=== PATIENT | female | born 1960 | race Caucasian/White ===

== ENCOUNTER 2016-08-10 11:05 | Outpatient (CLI) | payer OTHER ==
[2014-04-28 12:07] VITALS: BP 139/80
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
== END 2016-08-10 11:06 ==
LOC: RAD 11:05
PROVIDERS: ATTEND Family Medicine
DX: M48.54XA Collapsed vertebra, not elsewhere classified, thoracic region, initial encounter for fracture (principal); M48.02 Spinal stenosis, cervical region
CPT/HCPCS: 72141; 72146

== ENCOUNTER 2016-08-11 10:54 | Outpatient (CLI) | payer OTHER ==
[2014-04-28 12:07] VITALS: BP 139/80
[~2016-08-11 10:54] MED LIST: BUPIVACAINE HCL/PF 2.5 MG/ML 10ML VIAL IV ONE; Lidocaine 1% 5ml(IM or SUTURE)(PAIN CLINIC) ONE; MIDAZOLAM HCL 2 MG/2 ML VIAL ONE; NORMAL SALINE 500 ML IV.SOLN IV ONE; SALINE FLUSH 10 ML DISP.SYRIN IVF ONE; TRIAMCINOLONE ACETONID 40MG/ML VIAL ONE; fentaNYL CITRATE/PF 100 MCG/ 2ML AMP ONE
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
--- NOTE | 2016-08-13 12:41 | THORACIC ESI FLUORO ---
NAME OF PROCEDURE: Left T4-T5 thoracic epidural steroid injection with trigger point injection under fluoroscopic guidance. DESCRIPTION OF PROCEDURE: The risks and benefits were discussed with the patient including the risk of infection, bleeding, nerve injury, and headache, as well as the risks of steroid exposure causing hyperglycemia, hypertension, osteoporosis, or increased infectious risks. The patient understood these risks and agreed to proceed. Consent was obtained prior to the procedure. The patient was placed in the prone position on the fluoroscopy table with a pillow underneath the abdomen to afford anterior flexion of the thoracic spine. The low back was cleaned. A sterile drape was applied. An 18 gauge thin wall Tuohy epidural needle was advanced with normal saline loss of resistance technique and direct fluoroscopic guidance with a left paramedian approach at the T4-T5 level. On obtaining loss of resistance to normal saline, it was verified that there was no aspiration of CSF or blood. Furthermore, the needle tip location was verified with lateral and AP fluoroscopic views. Omnipaque 240 myelogram dye were injected through the epidural needle. The distribution of the dye was noted to be within the desired distribution within the lumbar epidural space. Triamcinolone acetate and 1% lidocaine was injected into the epidural space. The stylet was replaced in the needle and the needle was removed from the back. At this point, a trigger point injection with 0.25% bupivacaine was placed in the left rhomboid muscle and the latissimus dorsi muscle. The patient tolerated the procedure well. There were no apparent complications. The back was cleaned and a bandage was applied over the injection site. The patient was monitored for 20 minutes following the procedure. During this time, the vital signs remained stable and the patient experienced no adverse sequelae. The patient was discharged in good condition. ASSESSMENT: 1. Left thoracic radiculitis and T4-T5 neuroforaminal stenosis. 2. Chronic compression deformities of T3, T4, and T5 vertebral bodies. 3. Severe thoracic kyphosis. 4. Lumbar multi-level spondylosis without spinal or neuroforaminal narrowing. PLAN: Left T4-T5 thoracic epidural steroid injection with trigger point injection under fluoroscopic guidance. FOLLOWUP: Return to clinic if problems develop or worsen. KELSIE
== END 2016-08-11 11:00 ==
LOC: OUT 10:54
PROVIDERS: ATTEND Anesthesiology Pain Medicine
DX: M48.04 Spinal stenosis, thoracic region (principal); M54.14 Radiculopathy, thoracic region; M40.204 Unspecified kyphosis, thoracic region; M47.816 Spondylosis without myelopathy or radiculopathy, lumbar region
CPT/HCPCS: 99214; G0463; J2250; J3010; J3301; J3490; J7060; Q9966; S1016

== ENCOUNTER 2016-08-17 09:35 | Outpatient (CLI) | payer OTHER ==
[2014-04-28 12:07] VITALS: BP 139/80
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
== END 2016-08-17 09:36 ==
LOC: RAD 09:35
PROVIDERS: ATTEND Family Medicine
DX: M54.9 Dorsalgia, unspecified (principal)
CPT/HCPCS: 72148

== ENCOUNTER 2016-09-15 11:29 | Outpatient (CLI) | payer OTHER, MEDICAID ==
[2014-04-28 12:07] VITALS: BP 139/80
[~2016-09-15 11:29] MED LIST changes: +0.9 % SODIUM CHLORIDE PF 10 ML VIAL IJ ONE; -BUPIVACAINE HCL/PF 2.5 MG/ML 10ML VIAL IV ONE; +LIDOCAINE HCL/PF 2% 100 MG/5 ML VIAL IJ ONE; -MIDAZOLAM HCL 2 MG/2 ML VIAL ONE; +PROPOFOL 200 MG/20 ML VIAL IV ONE; -fentaNYL CITRATE/PF 100 MCG/ 2ML AMP ONE
--- NOTE | 2016-09-16 10:38 | THORACIC ESI FLUORO ---
SUBJECTIVE: Ms. Zarate follows up today with thoracic radiculitis. She had a T4-T5 epidural steroid injection (CYRIL) which was very effective. She said she had 100 % pain relief which lasted several weeks. The pain has been gradually reoccurring, but she is still improved. ANESTHESIA: Monitored anesthesia care. ANESTHESIOLOGIST: Gabriella Chavez CRNA OPERATIVE PROCEDURE: Left thoracic T4-T5 epidural steroid injection with fluoroscopic guidance. DESCRIPTION OF PROCEDURE: The risks and benefits were discussed with the patient including the risk of infection, bleeding, nerve injury, and headache, as well as the risks of steroid exposure causing hyperglycemia, hypertension, osteoporosis, or increased infectious risks. The patient understood these risks and agreed to proceed. Consent was obtained prior to the procedure. The patient was placed in the prone position on the fluoroscopy table with a pillow underneath the abdomen to afford anterior flexion of the thoracic spine. The low back was cleaned and a sterile drape was applied. An 18-gauge thin wall Tuohy epidural needle was advanced with normal saline loss of resistance technique and direct fluoroscopic guidance with a left paramedian approach at the T4-T5 level. On obtaining loss of resistance to normal saline, it was verified that there was no aspiration of CSF or blood. Furthermore, the needle tip location was verified with lateral and AP fluoroscopic views. Omnipaque 240 myelogram dye were injected through the epidural needle. The distribution of the dye was noted to be within the desired distribution within the thoracic epidural space. Triamcinolone acetate and 1% lidocaine was injected into the epidural space. The stylet was replaced in the needle and the needle was removed from the back. The patient tolerated the procedure well. The back was cleaned and a bandage was applied over the injection site. The patient was monitored for 20 minutes following the procedure and during this time the vital signs remained stable and the patient experienced no adverse sequelae. The patient was discharged in good condition. ASSESSMENT: 1. Thoracic radiculitis. 2. Kyphosis of the thoracic spine. 3. Left neuroforaminal stenosis. PLAN: I am going to plan on repeating the T4-T5 thoracic epidural steroid injection today with anesthesia sedation because of the discomfort she had during the previous injection. I looked at lumbar MRI images and she has primary spondylolytic changes at the lower portion of the lumbar spine without evidence of disk protrusion or spinal stenosis. Plan today for a left thoracic T4-T5 epidural steroid injection under fluoroscopic guidance with monitored anesthesia care. FOLLOW UP: Furthermore, I am going to plan on having her follow up in 4 to 6 weeks for a reevaluation at that point. KELSIE
== END 2016-09-15 11:30 ==
LOC: OUT 11:29
PROVIDERS: ATTEND Anesthesiology Pain Medicine
DX: M54.14 Radiculopathy, thoracic region (principal); M40.294 Other kyphosis, thoracic region; M48.04 Spinal stenosis, thoracic region
CPT/HCPCS: J2001; J2704; J3301; J7060; Q9966; 99214; G0463; S1016

== ENCOUNTER 2016-11-24 10:12 | Outpatient (CLI) | payer OTHER, MEDICAID ==
[2014-04-28 12:07] VITALS: BP 139/80
--- NOTE | 2016-11-26 09:53 | THORACIC TF NERVE ROOT BLOCK ---
SUBJECTIVE: Kymberly follows up with me today and I reviewed her MRIs with her and she has a great deal of increased cervical lordosis and thoracic kyphosis. She is having mostly left-sided flank pain at T4-T5 and T5-T6 from radiculitis secondary to kyphosis and disk protrusion. She has improved, and I am going to repeat a transforaminal injection at T4-T5 on the left. PROCEDURE: Left T4-T5 thoracic transforaminal epidural steroid injection with fluoroscopic guidance. DESCRIPTION OF PROCEDURE: The risks and benefits of todays procedure were discussed with the patient at length including the risks of infection, bleeding, nerve injury and potential pneumothorax. The patient understood these risks and agreed to proceed. The patient was placed in the prone position on the fluoroscopy table with a pillow underneath the chest to a forward flexion of the spine. The back was cleaned and sterile drapes were applied. An oblique fluoroscopic view was obtained of the T4-T5 level. A 23-gauge, 3-1/ 2 inch spinal needle was advanced under direct beam fluoroscopic guidance until the needle tip contacted the superior most aspect of the left-sided T4 rib articulation (just proximal to the articulation of the rib). The needle was then directed slightly superomedially under lateral fluoroscopic viewing and advanced into the T4 nerve root foramen (T4-T5 intervertebral foramen). It was verified that there was no aspiration of cerebrospinal fluid or blood. Omnipaque 240 myelogram dye was injected through the needle and was noted to course within the desired distribution along the foraminal epidural space and out the nerve root epidural region. Triamcinolone acetate diluted in 0.25% bupivacaine was subsequently injected into the epidural space. The stylette was replaced in the needle and the needle was removed from the back. The patient tolerated the procedure well. A bandage was applied over the injection site. The patient was monitored for 20 minutes following the procedure during which time the vital signs remained stable and the patient experienced no adverse sequelae. The patient was discharged home in good condition. ASSESSMENT: 1 Thoracic radiculitis. 2. Cervical stenosis at C4-C5, C5-C6, and C6-C7. FOLLOW UP: Return to the clinic if problems develop or worsened. cc: Dr. Celestino IGLESIAS
== END 2016-11-24 10:13 ==
LOC: OUT 10:12
PROVIDERS: ATTEND Anesthesiology Pain Medicine
DX: M54.14 Radiculopathy, thoracic region (principal); M48.02 Spinal stenosis, cervical region
CPT/HCPCS: J2250; J2704; J3301; J3490; Q9966; 64490; 99214; G0463

== ENCOUNTER → 2017-05-11 | Outpatient (CLI) | payer OTHER ==
[2014-04-28 12:07] VITALS: BP 139/80
[2017-05-11 10:45] LABS: eGFR (African) > 60; eGFR (Non-African) > 60
--- NOTE | 2017-05-11 12:56 | Diagnostic Imaging Report ---
NATHALY COCHRAN [facility] [address] [facility] [address] [place] [address]. [id number] Report Submission Date: May 11, 2017 11:39:42 AM CDT Patient Study Name: CAROLINA SANON Date: May 11, 2017 10:54:00 AM CDT Modality Type: CT\SR Gender: F Description: CT ABD & PELVIS W/ CON : 56 Institution: [facility] Physician: NATHALY COCHRAN Examination: CT Abdomen/pelvis History: Generalized abdominal discomfort Comparison exams: None available Technique: CT Abdomen/pelvis with IV protocol. Findings: Liver demonstrates diffuse low attenuation. No central lesion. Spleen , adrenals, pancreas, kidneys and gallbladder are without gross irregularity. No abnormal enhancement. No gallstone. No suspicious calcifications, the renal parenchyma. Ureters do not appear to be dilated in their course through the abdomen and pelvis. Bladder margin within normal limits. Abdominal aorta demonstrates mild peripheral described disease. No aneurysm. Cardiac silhouette not enlarged. No pericardial effusion. Bowel with contrast. Few prominent loops of small bowel with air-fluid levels within the left upper abdomen. No abnormal small bowel dilation. Stool within the large bowel limiting sensitivity. Diffuse mucosal thickening involving the large bowel extending from the cecum through to the rectum. No mesenteric inflammatory changes or free fluid. Appendix not visualized. Osseous structures demonstrate degenerative changes. Lung bases without infiltrate. No effusion. Impression: Diffuse mucosal thickening involving the entire large bowel - vieira colitis. No evidence for perforation or abscess at this time. Few prominent loops of small bowel with air-fluid levels within the left upper abdomen - enteritis. Fatty liver. Electronically signed on May 11, 2017 11:39:42 AM CDT by: Juan Manuel IGLESIAS
== END ==
LOC: RAD 08:46
PROVIDERS: ATTEND Family Medicine
DX: K52.9 Noninfective gastroenteritis and colitis, unspecified (principal); R14.0 Abdominal distension (gaseous); R10.13 Epigastric pain
CPT/HCPCS: 74177; 82565; Q9966; A9698

== ENCOUNTER 2017-06-09 09:28 | Outpatient (CLI) | payer OTHER ==
[2014-04-28 12:07] VITALS: BP 139/80
[~2017-06-09 09:28] MED LIST changes: -0.9 % SODIUM CHLORIDE PF 10 ML VIAL IJ ONE; +BUPIVACAINE HCL/PF 2.5 MG/ML 10ML VIAL IV ONE; -LIDOCAINE HCL/PF 2% 100 MG/5 ML VIAL IJ ONE; +MIDAZOLAM HCL 2 MG/2 ML VIAL ONE; -PROPOFOL 200 MG/20 ML VIAL IV ONE; +fentaNYL CITRATE/PF 100 MCG/ 2ML AMP ONE
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
== END 2017-06-09 09:30 ==
LOC: OUT 09:28
PROVIDERS: ATTEND Anesthesiology Pain Medicine
DX: M54.14 Radiculopathy, thoracic region (principal); M40.294 Other kyphosis, thoracic region; M48.54XA Collapsed vertebra, not elsewhere classified, thoracic region, initial encounter for fracture
CPT/HCPCS: 64479; 99214; G0463; J2250; J3010; J3301; J7060; J3490; Q9966; S1016

== ENCOUNTER 2018-01-19 11:02 | Outpatient (CLI) | payer OTHER ==
[2014-04-28 12:07] VITALS: BP 139/80
[~2018-01-19 11:02] MED LIST changes: -BUPIVACAINE HCL/PF 2.5 MG/ML 10ML VIAL IV ONE; -Lidocaine 1% 5ml(IM or SUTURE)(PAIN CLINIC) ONE; -NORMAL SALINE 500 ML IV.SOLN IV ONE; -SALINE FLUSH 10 ML DISP.SYRIN IVF ONE; -TRIAMCINOLONE ACETONID 40MG/ML VIAL ONE
[2018-01-19] MEDS ORDERED: 0.9 % SODIUM CHLORIDE 500 ML IV ONE (11:03)
[2018-01-19] MEDS ORDERED: TRIAMCINOLONE ACETONID 40MG/ML VIAL ONE (11:03)
[2018-01-19] MEDS ORDERED: WATER FOR INJECTION,STERILE 100 ML VIAL IJ ONE (11:03)
[2018-01-19] MEDS ORDERED: Lidocaine 1% 5ml(IM or SUTURE)(PAIN CLINIC) ONE (11:03)
--- NOTE | 2018-01-25 11:33 | THORACIC TF NERVE ROOT BLOCK ---
SUBJECTIVE: Ms. Zarate follows up today with return of left-sided chest wall pain. She had a very good response to a left T4 transforaminal injection in May and had relatively complete relief of her chest wall pain following the transforaminal injection. She said that the pain did not reoccur until the latter part of December of 2017 and she presents today with left T4 radiculitis for a left thoracic T4 transforaminal nerve root injection with fluoroscopic guidance. We have elected to use IV sedation. ANESTHESIA: IV sedation with 2 mg of Versed IV and 50 mcg of Fentanyl. PROCEDURE: Left thoracic T4 transforaminal nerve root injection with fluoroscopic guidance. DESCRIPTION OF PROCEDURE: Consent was obtained after risks were fully explained. Then 2 mg of Versed IV and 50 mcg of Fentanyl was administered. With the patient positioned prone on the fluoroscopic procedure table, sterile prep and drape were applied. Under AP, oblique, and lateral fluoroscopic imaging, the T4 vertebral body and pedicle were identified. The 4th rib was also identified. A skin wheal was raised over the left lateral portion of T4 and with an oblique needle angle, the needle was advanced to the junction of the lamina and the pedicle at the left side of the T4 level. At this point, the needle was just walked inferiorly into the T4 neuroforaminal and Omnipaque was injected and revealed adequate spread around the 4th nerve root. At this point, the medication was placed. Patient tolerated the procedure well. There were no apparent complications. She was discharged home in good condition. ASSESSMENT: Thoracic radiculitis. PLAN: Left thoracic T4 transforaminal nerve root injection with fluoroscopic guidance. FOLLOW UP: Return to the clinic if problems develop or worsened. cc: Dr. Celestino IGLESIAS
== END 2018-01-19 11:04 ==
LOC: OUT 11:02
PROVIDERS: ATTEND Anesthesiology Pain Medicine
DX: M54.14 Radiculopathy, thoracic region (principal)
CPT/HCPCS: J2250; J3010; J3301; J7060; Q9966; 64479; 99213; G0463; A4550; S1016

== ENCOUNTER 2018-03-09 10:15 | Outpatient (CLI) | payer OTHER ==
[2014-04-28 12:07] VITALS: BP 139/80
[~2018-03-09 10:15] MED LIST changes: +BUPIVACAINE HCL/PF 2.5 MG/ML 10ML VIAL IV ONE; +LIDOCAINE HCL/PF 2% 100 MG/5 ML VIAL IJ ONE; +Lidocaine 1% 5ml(IM or SUTURE)(PAIN CLINIC) ONE; -MIDAZOLAM HCL 2 MG/2 ML VIAL ONE; +PROPOFOL 200 MG/20 ML VIAL IV ONE; +SALINE FLUSH 10 ML DISP.SYRIN IVF ONE; +TRIAMCINOLONE ACETONID 40MG/ML VIAL ONE; -fentaNYL CITRATE/PF 100 MCG/ 2ML AMP ONE
--- NOTE | 2018-03-14 11:54 | THORACIC TF NERVE ROOT BLOCK ---
SUBJECTIVE: Ms. Zarate follows up with me today with left-sided thoracic radicular pain which is returning. She has very good results with a T4 transforaminal injection. 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 ANESTHESIA: Monitored anesthesia care was done because of inability to tolerate the needle injection. PROCEDURE: Left T4 thoracic transforaminal epidural steroid injection with fluoroscopic guidance. DESCRIPTION OF PROCEDURE: The risks and benefits of todays procedure were discussed with the patient at length including the risks of infection, bleeding, nerve injury and potential pneumothorax. The patient was placed in the prone position on the fluoroscopy table with a pillow underneath the chest to a forward flexion of the spine. The back was cleaned with ChloraPrep scrub. Sterile drapes were applied. An oblique fluoroscopic view was obtained of the T4 level. A 23 gauge, 3-1/2 inch spinal needle was advanced under direct beam fluoroscopic guidance until the needle tip contacted the superior most aspect of the left-sided T4 rib articulation (just proximal to the articulation of the rib). The needle was then directed slightly superomedially under lateral fluoroscopic viewing and advanced into the T4 nerve root foramen (T4-T5 intervertebral foramen). It was verified that there was no aspiration of cerebrospinal fluid or blood. Omnipaque 240 myelogram dye was injected through the needle and was noted to course within the desired distribution along the foraminal epidural space and out the nerve root epidural region. The medication was subsequently injected into the epidural space. The stylette was replaced in the needle and the needle was removed from the back. The patient tolerated the procedure well. A bandage was applied over the injection site. The patient was monitored for 20 minutes following the procedure during which time the vital signs remained stable and the patient experienced no adverse sequelae. The patient was discharged home in good condition. ASSESSMENT: Thoracic radiculitis. PLAN: Left T4 thoracic transforaminal epidural steroid injection with fluoroscopic guidance. FOLLOW UP: Return to the clinic if problems develop or worsen. cc: Dr. Gavin IGLESIAS
== END 2018-03-09 10:16 ==
LOC: OUT 10:15
PROVIDERS: ATTEND Anesthesiology Pain Medicine
DX: M54.14 Radiculopathy, thoracic region (principal)
CPT/HCPCS: 64479; 99213; G0463; J2001; J2704; J3301; J3490; Q9966; S1016

== ENCOUNTER 2019-07-25 11:31 | Outpatient (CLI) | payer OTHER ==
[2014-04-28 12:07] VITALS: BP 139/80
--- NOTE | 2019-07-25 12:23 | Diagnostic Imaging Report ---
PATIENT MR#: [id number] PATIENT PATIENT NAME: CAROLINA SANON DATE OF : 1960 REFERRING PHYSICIAN: Eddy Estrada EXAM DATE: 07/25/2019 ACCESSION NUMBER: [id number] EXAM DESCRIPTION: CT PELVIS W/O CONTRAST CLINICAL HISTORY: CLOSED FX OF LT HIP, INITIAL ENCOUNTER TECHNIQUE: CT pelvis without contrast. COMPARISON: May 11, 2017. CT PELVIS WITHOUT CONTRAST: Bladder: Nondistended. Pelvic organs: Hysterectomy. Peritoneum: No fluid. Pelvic bone: No acute findings. 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 Proximal femurs: Status post left femoral neck ORIF. Lower lumbar spine: No acute findings. IMPRESSION: Status post left femoral neck ORIF, with anatomic alignment. Read by: Dr. Yassine Burden Transcribed by: Yassine Burden Transcribed Date: 07/25/2019 12:22:25 PM Electronically signed by: Dr. Yassine Burden Date signed: 07/25/2019 12:22:25 PM
== END 2019-07-25 11:41 ==
LOC: RAD 11:31
PROVIDERS: ATTEND Family Medicine
DX: S72.002A Fracture of unspecified part of neck of left femur, initial encounter for closed fracture (principal); X58.XXXA Exposure to other specified factors, initial encounter
CPT/HCPCS: 72192